=== PATIENT | male | born 1930 | race Hispanic/Latino ===

== ENCOUNTER 2018-06-16 08:31 | Day surgery (SDC) | payer BC, MEDICARE ==
[~2018-06-16 08:31] MED LIST: ANCEF/STERILE WATER 2 GM/20 ML 2 GM/20 ML SYRINGE IV NR; NACL 0.9% 1000 ML 1,000 ML IV SCH
[2018-06-16] MEDS ORDERED: AMIDATE IV ONE (09:02)
[2018-06-16] MEDS ORDERED: XYLOCAINE MPF 2% ONE (09:02)
[2018-06-16 09:46] LABS: Basophils # (Auto) 0.1 K/mm3 (0.0-0.1); Basophils % (Auto) 1.1 % (0.0-1.8); Eosinophils # (Auto) 0.1 K/mm3 (0.0-0.4); Hematocrit 41.6 % (35.5-45.6); Hemoglobin 14.6 gm/dl (11.8-15.2); Lymphocytes % (Auto) 20.8 % (13.4-35.0); Mean Corpuscular HGB Conc 35 % (32-34); Mean Corpuscular Volume 101 fl (84-94); Monocytes # (Auto) 0.5 K/mm3 (0.0-0.8); Monocytes % (Auto) 11.1 % (0.0-7.3); Red Blood Count 4.14 M/mm3 (3.65-5.03); Red Cell Distribution Width 15.4 % (13.2-15.2)
[2018-06-16 09:54] LABS: INR 1.07 (0.87-1.13); Partial Thromboplastin Time 25.2 Sec. (24.2-36.6)
[2018-06-16 10:03] LABS: BUN/Creatinine Ratio 31; Blood Urea Nitrogen 31 mg/dL (9-20); Calcium 9.4 mg/dL (8.4-10.2); Hemolysis Index 122
[2018-06-16] MEDS ORDERED: SUBLIMAZE ONE (10:19)
[2018-06-16] MEDS ORDERED: VERSED ONE ×2 (10:19→13:39)
[2018-06-16] MEDS ORDERED: DIPRIVAN 10 MG/ML IV ONE ×2 (10:19→13:28)
[2018-06-16] MEDS ORDERED: NEO SYNEPHRINE/NS Syringe(OR USE) IV ONE (10:20)
[2018-06-16] MEDS ORDERED: NACL P/F VIAL (10 ML) 10 ML ONE (10:20)
[2018-06-16] MEDS ORDERED: KETALAR ONE (10:20)
[2018-06-16 11:28] LABS: Platelet Count 177 K/mm3 (140-440)
--- NOTE | 2018-06-16 11:43 | Anesthesia Day of Surgery ---
Anesthesia Day of Surgery - Day of Surgery Patient Examined: Yes Patient H&P Reviewed: Yes Patient is NPO: Yes
--- NOTE | 2018-06-16 11:43 | Anesthesia Consultation ---
Anesthesia Consult and Med Hx Date of service: 06/16/18 - Airway ROM Head & Neck: Adequate Mental/Hyoid Distance: Adequate Mallampati Class: Class III Intubation Access Assessment: Possibly Difficult - Pulmonary Exam CTA: Yes - Cardiac Exam Cardiac Exam: RRR - Pre-Operative Health Status ASA Pre-Surgery Classification: ASA3 Proposed Anesthetic Plan: MAC - Pulmonary Hx Smoking: Yes Hx Asthma: No Hx Respiratory Symptoms: No Home Oxygen Therapy: No - Cardiovascular System Hx Hypertension: Yes Hx Coronary Artery Disease: Yes Hx Heart Attack/AMI: Yes (remote) Hx Angina: No Hx Percutaneous Transluminal Coronary Angioplasty (PTCA): No Hx Cardia Arrhythmia: Yes (a-fib. Eliquis held x2days) Hx Peripheral Vascular Disease: Yes (s/p CEA and multiple lower extremity endovascular procedures) - Central Nervous System Hx Seizures: No CVA: No Hx Psychiatric Problems: No - Gastrointestinal Hx Gastroesophageal Reflux Disease: No - Endocrine Hx Renal Disease: No Hx Liver Disease: No Hx Non-Insulin Dependent Diabetes: Yes Hx Thyroid Disease: No - Hematic Hx Anemia: No - Other Systems Hx Obesity: No - Additional Comments Anesthesia Medical History Comments: Hx CHF EF 40%, PVD, HTN, a-fib presenting for balloon angioplasty. No hx anesthetic complications.
--- NOTE | 2018-06-16 12:24 | Short Stay Summary ---
Short Stay Documentation Date of service: 06/16/18 Narrative H&P: 87 year old male with bilateral critical limb ischemia with nonhealing wounds. Left leg revascularization already performed. Needs to have right leg revascularization to prevent limb loss. - History Principal diagnosis: PVD with CLI H&P: obtained from office Past Medical History: CAD (CHF), PVD Past Surgical History: Other (revascularizations) Social history: lives with family - Allergies and Medications Current Medications: Allergies No Known Allergies Allergy (Unverified 06/16/18 08:31) Home Medications Medication Instructions Recorded Confirmed Last Taken Type Adult Low Dose Aspirin EC 81 mg PO DAILY 06/16/18 06/16/18 06/14/18 History 1 tab Apixaban [Eliquis] 5 mg PO BID 06/16/18 06/16/18 06/14/18 History 1 tab Furosemide [Lasix TAB] 40 mg PO BID 06/16/18 06/16/18 06/15/18 History 1 tab LORazepam [Ativan] 0.5 mg PO DAILY 06/16/18 06/16/18 06/15/18 History 1 tab Lisinopril [Zestril TAB] 5 mg PO DAILY 06/16/18 06/16/18 06/15/18 History 1 tab Spironolactone [Aldactone] 25 mg PO BID 06/16/18 06/16/18 06/15/18 History 1 tab amLODIPine 5 mg PO DAILY 06/16/18 06/16/18 06/15/18 History 1 tab levoFLOXacin [Levaquin TAB] 750 mg PO DAILY 06/16/18 06/16/18 06/15/18 History 1 tab metFORMIN [Glucophage] 500 mg PO DAILY 06/16/18 06/16/18 06/14/18 History 1 tab Active Medications Cefazolin Sodium (Ancef/Sterile Water 2 Gm/20 Ml) 2 gm in 20 mls @ 80 mls/hr IV PREOP NR; Protocol Stop: 06/16/18 23:59 Sodium Chloride (Nacl 0.9% 1000 Ml) 1,000 mls @ 42 mls/hr IV DIRECT MARY - Physical exam General appearance: no acute distress Lungs: Normal air movement Gastrointestinal: normal Extremities: abnormal (bilateral wounds of the feet) - Brief post op/procedure progress note Date of procedure: 06/16/18 Pre-op diagnosis: CLI of the right lower extremity Post-op diagnosis: same Procedure: right lower extremity multi station revascularization Anesthesia: MAC Surgeon: JANET RAINEY Estimated blood loss: minimal Condition: stable - Hospital course Hospital course: Tolerated procedure well. No issues. Discussed with patient's son how I will be joining a seperate group and how [facility] will assume care of him. This made him very angry and he believed I was not going to care for his father due to personal issues. I told him it was not because of that, but because of a non solicitation agreement. He was very upset and would not talk to me anymore. Before he decided to stop speaking with me, I told me he needs to followup with wound care and I recommend he follows up with [facility]. He understands but doesn't seem to care. The patient's son has bipolar and schizophrenia which makes it very difficult for him to understand the any plan, but he is the patient's sole air drier. - Disposition Condition at discharge: Stable Disposition: [id number] TO HOME OR SELFCARE - Discharge Diagnoses (1) Critical ischemia of lower extremity Status: Acute Short Stay Discharge Plan Activity: advance as tolerated Weight Bearing Status: Weight Bear as Tolerated Diet: regular Wound: keep clean and dry Additional Instructions: Restart Eliquis after 2 days (restart on tuesday) Start aspirin daily Followup with [facility] in 2 weeks Follow up with: KIRA THOMAS MD [Primary Care Provider] - 7 Days
[2018-06-16] MEDS ORDERED: HEPARIN/NS 5000 UNIT/500ML(CATH LAB) 1,000 ML IR ONE ×2 (12:28→12:58)
[2018-06-16] MEDS ORDERED: XYLOCAINE 2% INFILTRATI ONE (12:28)
[2018-06-16] MEDS ORDERED: ANCEF/STERILE WATER 2 GM/20 ML 2 GM/20 ML SYRINGE IV ONE (12:28)
[2018-06-16] MEDS ORDERED: HEPARIN 10,000 UNITS/10 ML ONE (12:29)
[2018-06-16] MEDS ORDERED: NITROGLYCERIN SYRINGE 9 ML ONE (14:18)
--- NOTE | 2018-06-16 14:51 | Operative Report ---
Operative Report Operative Report: EXAM: 1. Ultrasound-guided access of the left common femoral artery. 2. Angiography of the left lower extremity. 3. Selection of the abdominal aorta with angiography. 4. Selection of the right external iliac artery, superficial femoral artery, popliteal artery and anterior tibial artery 5. Fluoroscopic-guided placement of a 4 mm spider embolic protection device in the proximal anterior tibial artery 6. Atherectomy of the right distal superficial femoral artery and popliteal artery with a LS Hawkone device 7. Angioplasty of the popliteal artery with a 4 mm x 150 mm iNPACT DCB and distal and mid superficial 5 mm x 150 mm iNPACT DCB 8. Selection of the anterior tibial artery with angiography 9. Angioplasty of the anterior tibial artery with a 2.5 mm angioplasty balloon 10. Stenting of the right anterior tibial artery with a 2.75 mm x 38 mm RESOLUTE drug eluting stent 11. Angioplasty of the right mid and distal anterior tibial artery with a 2 mm angioplasty balloon 12. Closure of the left common femoral artery with a 6 Croatian Angio-Seal DATE: 06/16/18 DIRECTOR OF CONVENTION SERVICES: JANET RAINEY MD INDICATION: Critical limb ischemia of the right lower extremity MEDICATIONS: Please see nursing report for full details. 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 PROCEDURE: Risks, benefits, and alternatives were discussed with the patient and his family; written informed consent was obtained. The patient's groins were prepped and draped in a sterile fashion. The left common femoral artery was assessed with ultrasound was patent. Under direct ultrasound guidance, the left common femoral artery was accessed with a 21-gauge Khang puncture needle. 0.01 and a wire was passed to the aorta. Needle was exchanged for transitional dilator. Wire was exchanged for 0.035 inch wire. Transitional dilators exchanged for a 5 Croatian sheath. Digital subtraction angiography was performed and ensuring patency of the left external iliac artery, common femoral artery, proximal superficial femoral artery, and proximal profunda femoral artery. The access was appropriate, above the bifurcation and below the inferior epigastric artery. Catheters was used to select the abdominal aorta and digital subtraction angiography was performed and ensuring patency of the bilateral common iliac arteries, external iliac arteries, and internal iliac arteries. The infrarenal abdominal aorta was patent. The right external iliac artery selected, the right superficial femoral artery was selected, and the right popliteal artery was selected. Digital subtraction angiography was performed and ensuring patency of the right common femoral artery, external iliac artery, and profunda femoral artery. The right proximal superficial femoral artery was patent. There was stenting throughout the right mid superficial femoral artery, distal superficial femoral artery, popliteal artery, and stenting into the anterior tibial artery. The tibioperoneal trunk was occluded and jailed. The mid superficial femoral artery had 30% residual narrowing, the distal superficial femoral artery had intermittent areas of 40% narrowing, and the popliteal artery had intermittent areas of 60 percent narrowing and 40 and 50% narrowing. The stent in the proximal anterior tibial artery was patent. Immediately below this, there is a 90% narrowing in the proximal anterior tibial artery with intermittent 50% disease in the vessel and extensive collaterals feeding the peroneal artery and the posterior tibial arter y. The dorsalis pedis had a 99% narrowing within it and was functionally occluded since the vessels beyond this site were less than 0.5 mm in size. The patient was heparinized. Sheath was exchanged for a 7 Croatian 45 cm pedicle destination positioned in the right proximal superficial femoral artery. The anterior tibial artery was selected and a 4 mm spider embolic protection device was deployed. Atherectomy was performed of the distal superficial femoral artery and popliteal artery with a Mogujie LS device. The wire became entangled and kinked requiring removal of the device and the spider embolic protection device. A new spider embolic protection device was deployed. 4 mm x 150 mm drug-eluting balloon was used to perform angioplasty of the popliteal artery, and a 5 mm drug-eluting balloon was used to perform angioplasty of the mid and distal superficial femoral artery. Digital subtraction angiography demonstrated of the popliteal artery, and mid and distal superficial femoral artery. The anterior tibial artery was selected and wire was passed into the dorsalis pedis. 2.5 mm angioplasty balloon was used to perform angioplasty of the proximal and mid and distal anterior tibial artery. Digital subtraction angiography demonstrated dissection of the proximal anterior tibial artery immediately after the stent in the anterior tibial artery. I decided to stent this area. 2.75 mm x 38 mm drug-eluting coronary stent (resolute) was used to stent the proximal anterior tibial artery. Digital subtraction angiography demonstrated no residual narrowing at this location. 2 mm angioplasty balloon was then used to perform angioplasty of the anterior tibial artery at low pressure for 5 minutes. Digital subtraction angiography was performed demonstrating no residual narrowing of the rest of the anterior tibial artery except for the dorsalis pedis which, as mentioned previously, was functionally occluded. There is extensive amount of collaterals heading to the patient's lateral plantar arteries from the cross tibial collaterals. At this point, all wires, catheters, and cheese were retracted to the left external iliac artery and the site was closed with a 6 Croatian Angio-Seal. Sterile dressing applied. Patient tolerated the procedure well. No immediate postprocedural complication. FINDINGS: Please see procedure note above IMPRESSION: 1. Successful atherectomy and angioplasty with drug-eluting balloon of the right femoral popliteal artery. 2. Successful angioplasty and stenting of the right anterior tibial artery. 3. Successful closure of the left common femoral artery.
[2018-06-16 17:38] VITALS: BP 106/63
--- NOTE | 2018-06-16 18:24 | Post Anesthesia Evaluation ---
- Post Anesthesia Evaluation Patient Participated: Yes Airway Patent: Yes Stable Respiratory Function: Yes Nausea/Vomiting: No Temp > 96.8F: Yes Pain Manageable: Yes Adequeate Hydration: Yes Anesthesia Complications: No Other Comments: Patient awake, VS at baseline, tolerating PO. OK for d/c home with supervision.
== END 2018-06-16 18:40 | disposition home or self-care (01) ==
LOC: CATHLABREC 08:31
PROVIDERS: ATTEND Radiology Diagnostic Radiology
DX: I70.213 Atherosclerosis of native arteries of extremities with intermittent claudication, bilateral legs (principal); I11.0 Hypertensive heart disease with heart failure; I50.9 Heart failure, unspecified; I48.91 Unspecified atrial fibrillation; E11.9 Type 2 diabetes mellitus without complications; Z98.890 Other specified postprocedural states; Z87.891 Personal history of nicotine dependence; Z79.899 Other long term (current) drug therapy; Z79.01 Long term (current) use of anticoagulants; Z79.84 Long term (current) use of oral hypoglycemic drugs
CPT/HCPCS: 36415; 37225; 37230; 75625; 75710; 80048; 82962; 85025; 85610; 85730; 93005; 93010; C1714; C1725; C1760; C1769; C1874; C1884; C1887; C2623; J0690; J1644; J2250; J2370; J2704; J3010; J7030; Q9967